=== PATIENT | male | born 1995 | race African-American/Black ===

== ENCOUNTER 2019-11-22 13:58 | Emergency (ER) | payer OTHER, SELFPAY ==
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
[2019-11-22 15:11] VITALS: BP 118/63; TEMP 98; O2SAT 99
== END 2019-11-22 14:53 | disposition home or self-care (01) ==
LOC: ER 13:58
DX: S00.90XA Unspecified superficial injury of unspecified part of head, initial encounter (principal); V89.0XXA Person injured in unspecified motor-vehicle accident, nontraffic, initial encounter
CPT/HCPCS: 99283